=== PATIENT | female | born 1950 | race Caucasian/White ===

== ENCOUNTER 2018-04-06 10:42 | Outpatient (CLI) | payer MEDICARE, BC ==
--- NOTE | 2018-04-06 12:55 | BD ---
BONE DENSITOMETRY USING DEXA: HISTORY: Postmenopausal screening for osteoporosis. FINDINGS: Lumbar Spine: BMD (g/cm2) L1 1.018 T-Score: 0.3 Z-Score: 1.8 L2 1.045 T-Score: 0.2 Z-Score: 1.9 L3 1.151 T-Score: 0.6 Z-Score: 2.5 L4 1.222 T-Score: 1.5 Z-Score: 3.4 L1-L4 1.111 T-Score: 1.6 Z-Score: 2.4 Femoral Neck: 0.867 T-Score: 0.2 Z-Score: 1.7 Total Femur: 1.173 T-Score: 1.9 Z-Score: 3.1 There has been interval improvement of 09% in the BMD of the lumbar spine and an improvement of 11.8% in the BMD of the proximal femur since 06/08/2016. Impression: Normal bone mineral density. No evidence of osteopenia/osteoporosis. POS: [facility]
== END 2018-04-06 10:43 | disposition home or self-care (01) ==
LOC: BICMAMMO 10:42
PROVIDERS: ATTEND Internal Medicine Hematology & Oncology
DX: Z13.820 Encounter for screening for osteoporosis (principal); N95.9 Unspecified menopausal and perimenopausal disorder; Z85.3 Personal history of malignant neoplasm of breast
CPT/HCPCS: 77080

== ENCOUNTER 2020-08-01 14:46 | Outpatient (CLI) | payer MEDICARE, BC | END 2020-08-01 14:47 | disposition home or self-care (01) | LOC: BICMAMMO 14:46 | PROVIDERS: ATTEND Internal Medicine Hematology & Oncology | DX: Z13.820 Encounter for screening for osteoporosis (principal); N95.8 Other specified menopausal and perimenopausal disorders; Z85.3 Personal history of malignant neoplasm of breast | CPT/HCPCS: 77080 ==

== ENCOUNTER 2021-11-11 19:57 | Inpatient (IN) | payer OTHER, BC, MEDICAID ==
[~2021-11-11 19:57] MED LIST: Iopamidol-370 76% 500 ML 1 ML ONE
[2021-11-11 20:24] LABS: #Eosinphils 0.2 thou/uL (0.0-0.7); #Lymphocytes 2.1 thou/uL (1.20-3.40); #Monocytes 0.4 thou/uL (0.11-0.59); #Neutrophils 3.6 thou/uL (1.40-6.50); %Basophils 0.4 % (0.0-1.0); %Eosinophils 2.5 % (0.0-10.0); %Lymphocytes 33.6 % (21.0-51.0); %Monocytes 6.6 % (0.0-10.0); %Neutrophils 56.9 % (42.0-75.0); Hemoglobin 14.6 g/dL (12.0-16.0); Mean Corpuscular HGB CONC 33.1 g/dL (32.0-36.0); Mean Corpuscular Hemoglobin 30.1 pg (27.0-31.0); Mean Corpuscular Volume 91.1 fL (78.0-98.0); Mean Platelet Volume 7.2 fL (7.4-10.4); Platelet Count 215 thou/uL (130-400); RBC Distribution Width 11.7 % (11.5-14.5); Red Blood Cell (RBC) Count 4.85 mill/uL (4.20-5.40); White Blood Cell (WBC) Count 6.3 thou/uL (4.8-10.8)
[2021-11-11 20:46] LABS: ALT (SGPT) 16 U/L (8-55); AST (SGOT) 22 U/L (5-34); Albumin 4.2 g/dL (3.4-4.8); Alkaline Phosphatase 72 U/L (40-110); Anion Gap 14 mmol/L (10-20); BUN (Urea Nitrogen) 10 mg/dL (9.8-20.1); Bilirubin, Total 0.7 mg/dL (0.2-1.2); Calc. Creatinine Clearance 0 mL/min (70-130); Calcium 9.3 mg/dL (7.8-10.44); Carbon Dioxide 24 mmol/L (23-31); Chloride 100 mmol/L (98-107); Estimated GFR 62; Globulin 3.1 g/dL (2.4-3.5); Glucose 228 mg/dL (80-115); Lipase 48 U/L (8-78); Potassium 3.4 mmol/L (3.5-5.1); Protein, Total 7.3 g/dL (5.8-8.1); Sodium 135 mmol/L (136-145)
[2021-11-11] MEDS ORDERED: Morphine 4 MG/ML VIAL ONE (21:02)
[2021-11-11] MEDS ORDERED: Ondansetron PF 4 MG/2 ML Vial ONE (21:02)
[2021-11-11] MEDS ORDERED: Aspirin 325 MG TAB ONE (22:05)
[2021-11-11] MEDS ORDERED: Atorvastatin Calcium 40 MG TAB PO SCH (23:45)
[2021-11-11] MEDS ORDERED: Acetaminophen 325 MG TAB PO PRN (23:47)
[2021-11-11] MEDS ORDERED: Bisacodyl 5 MG TAB PO PRN (23:47)
[2021-11-11] MEDS ORDERED: Ondansetron ODT 4 MG TAB PO PRN (23:47)
[2021-11-11] MEDS ORDERED: Senokot S 8.6-50 MG TAB PO PRN (23:47)
[2021-11-11] MEDS ORDERED: Nitroglycerin 0.4 MG TAB (25 Tab Bottle) SL PRN (23:47)
[2021-11-11 23:54] LABS: SARS-CoV-2 NAA Rapid Test Not Detected (NotDetected)
[2021-11-12 00:12] LABS: Troponin I 0.034 ng/mL (< 0.028)
[2021-11-12 00:56] LABS: Troponin I 0.034 ng/mL (< 0.028)
[2021-11-12 01:42] VITALS: BMI 35.3
[2021-11-12 05:13] LABS: #Eosinphils 0.2 thou/uL (0.0-0.7); #Lymphocytes 3.3 thou/uL (1.20-3.40); #Monocytes 0.6 thou/uL (0.11-0.59); #Neutrophils 3.1 thou/uL (1.40-6.50); %Basophils 0.6 % (0.0-1.0); %Eosinophils 2.9 % (0.0-10.0); %Lymphocytes 45.5 % (21.0-51.0); %Monocytes 8.6 % (0.0-10.0); %Neutrophils 42.4 % (42.0-75.0); Hemoglobin 13.6 g/dL (12.0-16.0); Mean Corpuscular HGB CONC 32.4 g/dL (32.0-36.0); Mean Corpuscular Hemoglobin 29.9 pg (27.0-31.0); Mean Corpuscular Volume 92.4 fL (78.0-98.0); Mean Platelet Volume 7.4 fL (7.4-10.4); Platelet Count 215 thou/uL (130-400); RBC Distribution Width 11.8 % (11.5-14.5); Red Blood Cell (RBC) Count 4.56 mill/uL (4.20-5.40); White Blood Cell (WBC) Count 7.3 thou/uL (4.8-10.8)
[2021-11-12 05:26] LABS: Troponin I 0.021 ng/mL (< 0.028)
[2021-11-12 05:29] LABS: Anion Gap 11 mmol/L (10-20); BUN (Urea Nitrogen) 10 mg/dL (9.8-20.1); Calc. Creatinine Clearance 92 mL/min (70-130); Calcium 8.9 mg/dL (7.8-10.44); Carbon Dioxide 26 mmol/L (23-31); Cardiac Risk 3.9 (Less than 4.5); Chloride 103 mmol/L (98-107); Cholesterol 172 mg/dl (< 200 Desired); Estimated GFR 80; Glucose 100 mg/dL (80-115); HDL Cholesterol 44 mg/dL (>60 Neg Risk); LDL Cholesterol, Calculated 108 mg/dL; Potassium 3.6 mmol/L (3.5-5.1); Sodium 136 mmol/L (136-145); Triglycerides 100 mg/dL (Less than 150)
[2021-11-12] MEDS: Levothyroxine Sodium 50 MCG TAB PO SCH (06:21)
[2021-11-12] MEDS ORDERED: ADENOSINE 60 MG/20 ML VIAL ONE (08:44)
[2021-11-12] MEDS: Lisinopril 20 MG TAB PO SCH (15:34)
[2021-11-12] MEDS: Aspirin Chewable 81 MG TAB PO SCH (15:46)
[2021-11-12] MEDS: FLUoxetine HCl 20 MG CAP PO SCH (15:46)
[2021-11-12] MEDS: Enoxaparin Sodium 40 MG/0.4 ML SYRINGE SC SCH (15:46)
[2021-11-12] MEDS: Calcium Carbonate 600 MG + Vit D TAB PO SCH (15:47)
[2021-11-12] MEDS: Anastrozole 1 MG TAB PO SCH (15:47)
[2021-11-12] MEDS: Atorvastatin Calcium 40 MG TAB PO SCH (20:51)
[2021-11-13 05:04] LABS: #Basophils 0.1 thou/uL (0.0-0.2); #Eosinphils 0.2 thou/uL (0.0-0.7); #Monocytes 0.5 thou/uL (0.11-0.59); #Neutrophils 3.4 thou/uL (1.40-6.50); %Basophils 0.7 % (0.0-1.0); %Eosinophils 2.8 % (0.0-10.0); %Neutrophils 47.5 % (42.0-75.0); Hemoglobin 15.1 g/dL (12.0-16.0); Mean Corpuscular HGB CONC 35.4 g/dL (32.0-36.0); Mean Corpuscular Hemoglobin 32.8 pg (27.0-31.0); Mean Corpuscular Volume 92.8 fL (78.0-98.0); Mean Platelet Volume 7.3 fL (7.4-10.4); Platelet Count 201 thou/uL (130-400); RBC Distribution Width 11.6 % (11.5-14.5); Red Blood Cell (RBC) Count 4.59 mill/uL (4.20-5.40); White Blood Cell (WBC) Count 7.1 thou/uL (4.8-10.8)
[2021-11-13] MEDS: Levothyroxine Sodium 50 MCG TAB PO SCH (05:11)
[2021-11-13 05:28] LABS: Anion Gap 13 mmol/L (10-20); BUN (Urea Nitrogen) 12 mg/dL (9.8-20.1); Calc. Creatinine Clearance 93 mL/min (70-130); Calcium 9.4 mg/dL (7.8-10.44); Carbon Dioxide 26 mmol/L (23-31); Chloride 102 mmol/L (98-107); Estimated GFR 81; Glucose 109 mg/dL (80-115); Sodium 137 mmol/L (136-145)
[2021-11-13] MEDS: Aspirin Chewable 81 MG TAB PO SCH (09:02)
[2021-11-13] MEDS: Anastrozole 1 MG TAB PO SCH (09:02)
[2021-11-13] MEDS: FLUoxetine HCl 20 MG CAP PO SCH (09:02)
[2021-11-13] MEDS: Enoxaparin Sodium 40 MG/0.4 ML SYRINGE SC SCH (09:02)
[2021-11-13] MEDS: Calcium Carbonate 600 MG + Vit D TAB PO SCH (09:02)
[2021-11-13] MEDS: Lisinopril 20 MG TAB PO SCH (09:02)
[2021-11-13] MEDS ORDERED: Iopamidol 370 76% 100 ML VIAL ONE (10:22)
[2021-11-13] MEDS ORDERED: Communication Order-Pharmacy FS SCH (15:15)
[2021-11-13] MEDS ORDERED: Nitroglycerin 100MG/250ML BOT 0 ML ONE (16:28)
[2021-11-13] MEDS ORDERED: Heparin 10,000 UNITS/ 10 ML VIAL ONE (16:28)
[2021-11-13] MEDS ORDERED: Lidocaine 1% (PF) 30 ML VIAL ONE (16:28)
[2021-11-13] MEDS ORDERED: Verapamil 5 MG/2 ML VIAL ONE (16:28)
[2021-11-13] MEDS ORDERED: Midazolam HCl 2 mg/2 ml Vial ONE (16:50)
[2021-11-13] MEDS ORDERED: Fentanyl 100 MCG/2 ML VIAL ONE (16:50)
[2021-11-13] MEDS ORDERED: hydrALAZINE 20 MG/ML VIAL ONE (17:09)
[2021-11-13] MEDS ORDERED: Nitroglycerin 0.4 MG TAB (25 Tab Bottle) SL PRN (17:25)
[2021-11-13] MEDS ORDERED: Acetaminophen/Codeine 30-300mg Tablet PO PRN ×2 (17:25)
[2021-11-13] MEDS ORDERED: Sodium Chloride 0.9% 200 ML IV PRN (17:25)
[2021-11-13] MEDS ORDERED: Sodium Chloride 0.9% 1,000 ML IV SCH (17:30)
[2021-11-13] MEDS: Sodium Chloride 0.9% 1,000 ML IV SCH (18:04)
[2021-11-13] MEDS: Atorvastatin Calcium 40 MG TAB PO SCH (22:54)
[2021-11-14 05:11] LABS: #Basophils 0.2 thou/uL (0.0-0.2); #Eosinphils 0.1 thou/uL (0.0-0.7); #Lymphocytes 1.9 thou/uL (1.20-3.40); #Monocytes 0.6 thou/uL (0.11-0.59); #Neutrophils 4.6 thou/uL (1.40-6.50); %Basophils 2.3 % (0.0-1.0); %Eosinophils 1.6 % (0.0-10.0); %Lymphocytes 25.3 % (21.0-51.0); %Monocytes 8.3 % (0.0-10.0); %Neutrophils 62.5 % (42.0-75.0); Hemoglobin 13.9 g/dL (12.0-16.0); Mean Corpuscular HGB CONC 33.6 g/dL (32.0-36.0); Mean Corpuscular Hemoglobin 30.8 pg (27.0-31.0); Mean Corpuscular Volume 91.7 fL (78.0-98.0); Mean Platelet Volume 7.4 fL (7.4-10.4); Platelet Count 200 thou/uL (130-400); RBC Distribution Width 11.5 % (11.5-14.5); Red Blood Cell (RBC) Count 4.51 mill/uL (4.20-5.40); White Blood Cell (WBC) Count 7.4 thou/uL (4.8-10.8)
[2021-11-14 05:37] LABS: Anion Gap 12 mmol/L (10-20); BUN (Urea Nitrogen) 8 mg/dL (9.8-20.1); Calc. Creatinine Clearance 103 mL/min (70-130); Calcium 9.1 mg/dL (7.8-10.44); Carbon Dioxide 25 mmol/L (23-31); Chloride 102 mmol/L (98-107); Estimated GFR 92; Glucose 98 mg/dL (80-115); Potassium 3.4 mmol/L (3.5-5.1); Sodium 136 mmol/L (136-145)
[2021-11-14] MEDS: Levothyroxine Sodium 50 MCG TAB PO SCH (05:48)
[2021-11-14] MEDS: Sodium Chloride 0.9% 1,000 ML IV SCH ×3 (05:48→19:58)
[2021-11-14] MEDS ORDERED: Potassium Chloride 20 MEQ TAB PO SCH (08:45)
[2021-11-14] MEDS ORDERED: Communication Order-Pharmacy FS SCH (09:22)
[2021-11-14] MEDS ORDERED: Diazepam 5 MG TAB PO PRN (09:22)
[2021-11-14] MEDS: Lisinopril 20 MG TAB PO SCH (09:53)
[2021-11-14] MEDS: Enoxaparin Sodium 40 MG/0.4 ML SYRINGE SC SCH (09:53)
[2021-11-14] MEDS: Calcium Carbonate 600 MG + Vit D TAB PO SCH (09:53)
[2021-11-14] MEDS: FLUoxetine HCl 20 MG CAP PO SCH (09:53)
[2021-11-14] MEDS: Anastrozole 1 MG TAB PO SCH (09:53)
[2021-11-14] MEDS: Aspirin Chewable 81 MG TAB PO SCH (09:53)
[2021-11-14] MEDS: Atorvastatin Calcium 40 MG TAB PO SCH (19:58)
[2021-11-15] MEDS: Levothyroxine Sodium 50 MCG TAB PO SCH (05:36)
[2021-11-15] MEDS: Sodium Chloride 0.9% 1,000 ML IV SCH ×2 (05:37→15:54)
[2021-11-15 05:38] LABS: #Eosinphils 0.2 thou/uL (0.0-0.7); #Lymphocytes 1.7 thou/uL (1.20-3.40); #Monocytes 0.7 thou/uL (0.11-0.59); #Neutrophils 5.6 thou/uL (1.40-6.50); %Basophils 0.2 % (0.0-1.0); %Eosinophils 2.2 % (0.0-10.0); %Lymphocytes 20.7 % (21.0-51.0); %Monocytes 8.4 % (0.0-10.0); %Neutrophils 68.4 % (42.0-75.0); Hemoglobin 14.1 g/dL (12.0-16.0); Mean Corpuscular HGB CONC 33.1 g/dL (32.0-36.0); Mean Corpuscular Hemoglobin 30.6 pg (27.0-31.0); Mean Corpuscular Volume 92.6 fL (78.0-98.0); Mean Platelet Volume 7.3 fL (7.4-10.4); Platelet Count 188 thou/uL (130-400); RBC Distribution Width 11.6 % (11.5-14.5); Red Blood Cell (RBC) Count 4.61 mill/uL (4.20-5.40); White Blood Cell (WBC) Count 8.3 thou/uL (4.8-10.8)
[2021-11-15 06:01] LABS: Anion Gap 11 mmol/L (10-20); BUN (Urea Nitrogen) 12 mg/dL (9.8-20.1); Calc. Creatinine Clearance 99 mL/min (70-130); Carbon Dioxide 23 mmol/L (23-31); Chloride 107 mmol/L (98-107); Estimated GFR 88; Glucose 112 mg/dL (80-115); Potassium 3.7 mmol/L (3.5-5.1); Sodium 137 mmol/L (136-145)
[2021-11-15] MEDS: FLUoxetine HCl 20 MG CAP PO SCH (09:36)
[2021-11-15] MEDS: Calcium Carbonate 600 MG + Vit D TAB PO SCH (09:38)
[2021-11-15] MEDS: Anastrozole 1 MG TAB PO SCH (09:38)
[2021-11-15] MEDS: Aspirin Chewable 81 MG TAB PO SCH (09:38)
[2021-11-15] MEDS: Lisinopril 20 MG TAB PO SCH (09:39)
[2021-11-15] MEDS: Enoxaparin Sodium 40 MG/0.4 ML SYRINGE SC SCH (09:39)
[2021-11-15] MEDS: Atorvastatin Calcium 40 MG TAB PO SCH (22:47)
[2021-11-16] MEDS: Sodium Chloride 0.9% 1,000 ML IV SCH (02:36)
[2021-11-16 05:27] LABS: #Eosinphils 0.2 thou/uL (0.0-0.7); #Lymphocytes 2.1 thou/uL (1.20-3.40); #Monocytes 0.7 thou/uL (0.11-0.59); #Neutrophils 4.8 thou/uL (1.40-6.50); %Basophils 0.6 % (0.0-1.0); %Monocytes 9.2 % (0.0-10.0); %Neutrophils 61.1 % (42.0-75.0); Hemoglobin 14.4 g/dL (12.0-16.0); Mean Corpuscular HGB CONC 34.3 g/dL (32.0-36.0); Mean Corpuscular Hemoglobin 31.8 pg (27.0-31.0); Mean Corpuscular Volume 92.8 fL (78.0-98.0); Mean Platelet Volume 7.3 fL (7.4-10.4); Platelet Count 180 thou/uL (130-400); RBC Distribution Width 11.7 % (11.5-14.5); Red Blood Cell (RBC) Count 4.51 mill/uL (4.20-5.40); White Blood Cell (WBC) Count 7.9 thou/uL (4.8-10.8)
[2021-11-16 05:47] LABS: Anion Gap 11 mmol/L (10-20); BUN (Urea Nitrogen) 12 mg/dL (9.8-20.1); Calc. Creatinine Clearance 103 mL/min (70-130); Calcium 9.3 mg/dL (7.8-10.44); Carbon Dioxide 25 mmol/L (23-31); Chloride 106 mmol/L (98-107); Estimated GFR 92; Glucose 101 mg/dL (80-115); Potassium 3.5 mmol/L (3.5-5.1); Sodium 138 mmol/L (136-145)
[2021-11-16] MEDS: Levothyroxine Sodium 50 MCG TAB PO SCH (06:01)
[2021-11-16] MEDS ORDERED: Midazolam HCl 5 mg/5 ml Vial ONE (06:15)
[2021-11-16] MEDS ORDERED: fentaNYL Citrate/PF 100 MCG/2 ML SYRINGE ONE (06:15)
[2021-11-16] MEDS ORDERED: Rocuronium Bromide 50 MG/5 ML VIAL ONE (06:16)
[2021-11-16] MEDS ORDERED: niCARdipine 25 MG/10 ML VIAL ONE (06:16)
[2021-11-16] MEDS ORDERED: Insulin Regular 300 UNITS/3 ML VIAL ONE (06:16)
[2021-11-16] MEDS ORDERED: Norepinephrine 4 MG/4 ML VIAL ONE (06:16)
[2021-11-16] MEDS ORDERED: Dexmedetomidine 200 MCG/2 ML VIAL ONE (06:16)
[2021-11-16] MEDS ORDERED: Albumin 5% 500 ML ONE (06:35)
[2021-11-16] MEDS ORDERED: Lidocaine 1% MPF 2 ML VIAL ONE ×2 (06:39→07:35)
[2021-11-16] MEDS ORDERED: Heparin 10,000 UNITS/1 ML VIAL 30,000 UNITS in Sodium Chloride 0.9% 1,000 ML FS SCH (06:45)
[2021-11-16] MEDS ORDERED: Bupivacaine HCl 0.5%/Epinephrine 1:200,000/PF 30 ml Vial ONE (07:14)
[2021-11-16] MEDS ORDERED: Dexamethasone 4 mg/ml Vial ONE (07:14)
[2021-11-16] MEDS ORDERED: Sodium Chloride 0.9% 0 ML ONE (07:28)
[2021-11-16] MEDS ORDERED: CEFAZOLIN 2 GM VIAL ONE (07:28)
[2021-11-16] MEDS ORDERED: CEFAZOLIN 2 GM in Sodium Chloride 0.9% 100 ML IVPB SCH (07:30)
[2021-11-16] MEDS ORDERED: Rocuronium Bromide 10 MG/ML (10ML VIAL) ONE (07:35)
[2021-11-16] MEDS ORDERED: Heparin 30,000 units/30 ml VIAL ONE (07:35)
[2021-11-16] MEDS ORDERED: Aminocaproic Acid 5 GM/20 ML VIAL ONE (07:35)
[2021-11-16] MEDS ORDERED: Magnesium Sulfate 1 GM/2 ML VIAL ONE (07:35)
[2021-11-16] MEDS ORDERED: Thrombin 5000 UNITS/5 ML VIAL ONE (07:35)
[2021-11-16] MEDS ORDERED: Protamine Sulfate 250 MG/25 ML VIAL ONE (07:35)
[2021-11-16] MEDS ORDERED: Heparin 5,000 UNITS/ML VIAL ONE (07:35)
[2021-11-16] MEDS ORDERED: Papaverine 60 MG/2 ML VIAL ONE (07:35)
[2021-11-16] MEDS ORDERED: Sodium Bicarb 50 MEQ/50 ML Abboject 8.4% SYRINGE ONE (07:35)
[2021-11-16] MEDS ORDERED: Cardioplegic Soln 1,000 ML BAG ONE (07:35)
[2021-11-16] MEDS ORDERED: Calcium Chloride 1 GM/10 ML Abboject SYRINGE ONE (07:35)
[2021-11-16] MEDS ORDERED: PROPOFOL 200 MG/20 ML VIAL ONE (07:35)
[2021-11-16] MEDS ORDERED: Potassium Chloride 60 MEQ/30 ML VIAL ONE (07:35)
[2021-11-16] MEDS ORDERED: Lidocaine 2% PF 100 mg/5 ml Syringe ONE (07:35)
[2021-11-16] MEDS ORDERED: PHENYLEPHRINE-NS 100 MCG/ML 10 ML SYRINGE ONE (09:38)
[2021-11-16] MEDS: Calcium Carbonate 600 MG + Vit D TAB PO SCH (10:13)
[2021-11-16] MEDS: Lisinopril 20 MG TAB PO SCH (10:13)
[2021-11-16] MEDS ORDERED: Promethazine HCl 25 MG/ML VIAL IM PRN (11:22)
[2021-11-16] MEDS ORDERED: Bisacodyl 5 MG TAB PO PRN (11:22)
[2021-11-16] MEDS ORDERED: Guaifenesin DM 100-10/5 ML UDCUP PO PRN (11:22)
[2021-11-16] MEDS ORDERED: Fentanyl 100 MCG/2 ML VIAL SLOW IVP PRN ×2 (11:22)
[2021-11-16] MEDS ORDERED: Morphine 4 MG/ML VIAL SLOW IVP PRN (11:22)
[2021-11-16] MEDS ORDERED: Hetastarch 6% 500 ML 500 ML IVPB PRN (11:22)
[2021-11-16] MEDS ORDERED: Post-Op Insulin Drip Protocol IVPB ONE (11:22)
[2021-11-16] MEDS ORDERED: HYDROcodone/Acetaminophen 5/325 mg Tablet PO PRN ×2 (11:22)
[2021-11-16] MEDS ORDERED: Mag-Al 1200 mg/1200 mg/30 ML UDCUP PO PRN (11:22)
[2021-11-16] MEDS ORDERED: Bisacodyl 10 MG SUPP PR PRN (11:22)
[2021-11-16] MEDS ORDERED: Ondansetron PF 4 MG/2 ML Vial IVP PRN (11:22)
[2021-11-16] MEDS ORDERED: Magnesium 2 GM/50 ML(in water) 2 GM in Premix Bag 1 BAG IVPB SCH (11:22)
[2021-11-16] MEDS ORDERED: Potassium Chloride 20 MEQ/100 ML PREMIX BAG IVPB PRN (11:22)
[2021-11-16] MEDS ORDERED: HUMULIN R 100 UNITS in Sodium Chloride 0.9% 100 ML IVPB SCH (11:30)
[2021-11-16] MEDS ORDERED: Dextrose 50% Abboject 50 ML SYRINGE SLOW IVP PRN (11:30)
[2021-11-16] MEDS ORDERED: Insulin Regular 300 UNITS/3 ML VIAL SC PRN (11:30)
[2021-11-16] MEDS ORDERED: Dextrose 5% in Water 1,000 ML IV PRN (11:30)
[2021-11-16 11:38] LABS: #Eosinphils 0.1 thou/uL (0.0-0.7); #Lymphocytes 2.3 thou/uL (1.20-3.40); #Monocytes 0.7 thou/uL (0.11-0.59); %Basophils 0.2 % (0.0-1.0); %Eosinophils 0.7 % (0.0-10.0); %Lymphocytes 14.2 % (21.0-51.0); %Monocytes 4.6 % (0.0-10.0); %Neutrophils 80.3 % (42.0-75.0); Hemoglobin 12.5 g/dL (12.0-16.0); Mean Corpuscular Hemoglobin 31.2 pg (27.0-31.0); Mean Corpuscular Volume 94.4 fL (78.0-98.0); Mean Platelet Volume 7.8 fL (7.4-10.4); Platelet Count 174 thou/uL (130-400); RBC Distribution Width 11.9 % (11.5-14.5); Red Blood Cell (RBC) Count 4.01 mill/uL (4.20-5.40); White Blood Cell (WBC) Count 16.2 thou/uL (4.8-10.8)
[2021-11-16 11:38] LABS: ALV-art Gradient 275.125 mmHg (0-20); Actual Bicarbonate (HCO3a) 20.7 mEq/L (22-28); Base Excess (BEa) -3.7 mEq/L (-2.0 to +3.0); CO2 Tension 35.5 mmHg (35.0-45.0); Calcium, Ionized (arterial) 1.14 mmol/L (1.12-1.30); Carboxyhemoglobin (COHb) 0.4 gm% (0.0-3.0); Hemoglobin (Hb) 12.8 g/dL (12.0-16.0); O2 Tension (PaO2), arterial 108.3 mmHg (> 80.0); Potassium - ABG Lab 3.33 mmol/L (3.70-5.30); Puncture Site Arterial Line; pH, Arterial 7.38 (7.35-7.45)
[2021-11-16 11:52] LABS: INR-International Normal Ratio 1.3; PTT 33.3 sec (22.9-36.1); Prothrombin Time 16.3 sec (12.0-14.7)
[2021-11-16 11:57] LABS: Anion Gap 11 mmol/L (10-20); BUN (Urea Nitrogen) 10 mg/dL (9.8-20.1); Calc. Creatinine Clearance 110 mL/min (70-130); Carbon Dioxide 20 mmol/L (23-31); Chloride 112 mmol/L (98-107); Potassium 3.5 mmol/L (3.5-5.1); Sodium 139 mmol/L (136-145)
[2021-11-16 11:58] LABS: Calcium 8.3 mg/dL (7.8-10.44); Estimated GFR 95; Glucose 197 mg/dL (80-115)
[2021-11-16] MEDS: Lactated Ringer's 1,000 ML IV SCH ×2 (12:12→23:44)
[2021-11-16] MEDS: Ketorolac Tromethamine 30 MG/ML VIAL IVP SCH ×3 (12:12→23:43)
[2021-11-16] MEDS: CEFAZOLIN 2 GM in Sodium Chloride 0.9% 100 ML IVPB SCH ×2 (12:13→20:34)
[2021-11-16 15:42] LABS: Actual Bicarbonate (HCO3a) 21.5 mEq/L (22-28); Base Excess (BEa) -3.4 mEq/L (-2.0 to +3.0); CO2 Tension 38.2 mmHg (35.0-45.0); Calcium, Ionized (arterial) 1.13 mmol/L (1.12-1.30); Carboxyhemoglobin (COHb) 0.4 gm% (0.0-3.0); Hemoglobin (Hb) 11.9 g/dL (12.0-16.0); O2 Tension (PaO2), arterial 79.3 mmHg (> 80.0); Potassium - ABG Lab 4.01 mmol/L (3.70-5.30); pH, Arterial 7.37 (7.35-7.45)
[2021-11-16 15:51] LABS: Puncture Site Arterial Line
[2021-11-16 17:13] LABS: Hemoglobin 11.2 g/dL (12.0-16.0)
[2021-11-16 17:34] LABS: Potassium 4.1 mmol/L (3.5-5.1)
[2021-11-16] MEDS ORDERED: Famotidine/PF 20 mg/2ml Vial SLOW IVP SCH (21:00)
[2021-11-16] MEDS ORDERED: Atorvastatin Calcium 20 MG TAB PO SCH (21:00)
[2021-11-17 04:41] LABS: #Lymphocytes 1.1 thou/uL (1.20-3.40); #Monocytes 1.1 thou/uL (0.11-0.59); #Neutrophils 8.6 thou/uL (1.40-6.50); %Basophils 0.1 % (0.0-1.0); %Lymphocytes 10.1 % (21.0-51.0); %Monocytes 9.9 % (0.0-10.0); %Neutrophils 79.9 % (42.0-75.0); Hemoglobin 10.5 g/dL (12.0-16.0); Mean Corpuscular HGB CONC 33.5 g/dL (32.0-36.0); Mean Corpuscular Hemoglobin 31.6 pg (27.0-31.0); Mean Corpuscular Volume 94.4 fL (78.0-98.0); Mean Platelet Volume 7.9 fL (7.4-10.4); Platelet Count 167 thou/uL (130-400); RBC Distribution Width 11.7 % (11.5-14.5); Red Blood Cell (RBC) Count 3.34 mill/uL (4.20-5.40); White Blood Cell (WBC) Count 10.7 thou/uL (4.8-10.8)
[2021-11-17 05:04] LABS: Anion Gap 9 mmol/L (10-20); BUN (Urea Nitrogen) 12 mg/dL (9.8-20.1); Calc. Creatinine Clearance 97 mL/min (70-130); Calcium 8.4 mg/dL (7.8-10.44); Carbon Dioxide 24 mmol/L (23-31); Chloride 108 mmol/L (98-107); Estimated GFR 86; Glucose 116 mg/dL (80-115); Potassium 4.1 mmol/L (3.5-5.1); Sodium 137 mmol/L (136-145)
[2021-11-17] MEDS: Ketorolac Tromethamine 30 MG/ML VIAL IVP SCH ×4 (05:48→23:47)
[2021-11-17] MEDS: CEFAZOLIN 2 GM in Sodium Chloride 0.9% 100 ML IVPB SCH (05:49)
[2021-11-17] MEDS ORDERED: Zolpidem Tartrate 5 MG TAB PO PRN (08:10)
[2021-11-17] MEDS ORDERED: Bisacodyl 5 MG TAB PO PRN (08:10)
[2021-11-17] MEDS ORDERED: Nitroglycerin 0.4 MG TAB (25 Tab Bottle) SL PRN (08:10)
[2021-11-17] MEDS ORDERED: Mag-Al 1200 mg/1200 mg/30 ML UDCUP PO PRN (08:10)
[2021-11-17] MEDS ORDERED: traMADol HCl 50 MG TAB PO PRN ×2 (08:10)
[2021-11-17] MEDS ORDERED: Mineral Oil ENEMA PR PRN (08:10)
[2021-11-17] MEDS ORDERED: diphenhydrAMINE 25 MG CAP PO PRN (08:10)
[2021-11-17] MEDS ORDERED: Milk Of Magnesia 30 ML UDCUP PO PRN (08:10)
[2021-11-17] MEDS ORDERED: Bisacodyl 10 MG SUPP PR PRN (08:10)
[2021-11-17] MEDS ORDERED: Guaifenesin DM 100-10/5 ML UDCUP PO PRN (08:10)
[2021-11-17] MEDS ORDERED: Potassium Chloride 10 MEQ TAB PO SCH (08:30)
[2021-11-17] MEDS ORDERED: Aspirin 325 MG TAB PO SCH (09:00)
[2021-11-17] MEDS ORDERED: Furosemide 40 MG TAB PO SCH (09:00)
[2021-11-17] MEDS ORDERED: Metoprolol Tartrate 25 MG TAB PO SCH ×3 (09:26→21:00)
[2021-11-17] MEDS: FLUoxetine HCl 20 MG CAP PO SCH (10:16)
[2021-11-17] MEDS: Anastrozole 1 MG TAB PO SCH (10:17)
[2021-11-17] MEDS: Aspirin 81 mg Enteric Coated Tablet PO SCH (10:17)
[2021-11-17] MEDS: Clopidogrel Bisulfate 75 MG TAB PO SCH (10:17)
[2021-11-17] MEDS: Magnesium 2 GM/50 ML(in water) 2 GM in Premix Bag 1 BAG IVPB SCH (10:18)
[2021-11-17] MEDS ORDERED: Insulin Glargine 30 UNITS/0.3 ML VIAL SC PRN (11:25)
[2021-11-17 14:01] LABS: Actual Bicarbonate (HCO3a) 24.3 mEq/L (22-28); Analyzer IN Cardio OR; Base Excess (BEa) 1.3 mEq/L (-2.0 to +3.0); CO2 Tension 33.9 mmHg (35.0-45.0); Calcium, Ionized (arterial) 1.09 mmol/L (1.12-1.30); Carboxyhemoglobin (COHb) 0.6 gm% (0.0-3.0); Hemoglobin (Hb) 13.7 g/dL (12.0-16.0); O2 Tension (PaO2), arterial 233.6 mmHg (> 80.0); Potassium - ABG Lab 3.49 mmol/L (3.70-5.30); pH, Arterial 7.47 (7.35-7.45)
[2021-11-17 14:02] LABS: Analyzer IN Cardio OR; Base Excess (BEa) -0.9 mEq/L (-2.0 to +3.0); CO2 Tension 40.4 mmHg (35.0-45.0); Calcium, Ionized (arterial) 1.24 mmol/L (1.12-1.30); Carboxyhemoglobin (COHb) 0.1 gm% (0.0-3.0); Hemoglobin (Hb) 9.6 g/dL (12.0-16.0); O2 Tension (PaO2), arterial 369.1 mmHg (> 80.0); Potassium - ABG Lab 4.02 mmol/L (3.70-5.30); pH, Arterial 7.39 (7.35-7.45)
[2021-11-17 14:02] LABS: Actual Bicarbonate (HCO3a) 20.9 mEq/L (22-28); Analyzer IN Cardio OR; Base Excess (BEa) -2.5 mEq/L (-2.0 to +3.0); CO2 Tension 31.1 mmHg (35.0-45.0); Carboxyhemoglobin (COHb) 0.2 gm% (0.0-3.0); O2 Tension (PaO2), arterial 243.3 mmHg (> 80.0); Potassium - ABG Lab 3.64 mmol/L (3.70-5.30); pH, Arterial 7.45 (7.35-7.45)
[2021-11-17 14:02] LABS: Actual Bicarbonate (HCO3a) 24.9 mEq/L (22-28); Analyzer IN Cardio OR; Base Excess (BEa) -0.3 mEq/L (-2.0 to +3.0); CO2 Tension 42.7 mmHg (35.0-45.0); Calcium, Ionized (arterial) 0.94 mmol/L (1.12-1.30); Carboxyhemoglobin (COHb) 0.5 gm% (0.0-3.0); Hemoglobin (Hb) 9.3 g/dL (12.0-16.0); O2 Tension (PaO2), arterial 431.5 mmHg (> 80.0); Potassium - ABG Lab 3.91 mmol/L (3.70-5.30); pH, Arterial 7.38 (7.35-7.45)
[2021-11-17 14:02] LABS: Actual Bicarbonate (HCO3a) 20.8 mEq/L (22-28); Analyzer IN Cardio OR; Base Excess (BEa) -2.3 mEq/L (-2.0 to +3.0); CO2 Tension 30.9 mmHg (35.0-45.0); Calcium, Ionized (arterial) 1.05 mmol/L (1.12-1.30); Carboxyhemoglobin (COHb) 0.5 gm% (0.0-3.0); Hemoglobin (Hb) 12.7 g/dL (12.0-16.0); O2 Tension (PaO2), arterial 338.1 mmHg (> 80.0); Potassium - ABG Lab 3.11 mmol/L (3.70-5.30); pH, Arterial 7.45 (7.35-7.45)
[2021-11-17 14:03] LABS: Puncture Site Arterial Line
[2021-11-17 14:03] LABS: Actual Bicarbonate (HCO3a) 20.6 mEq/L (22-28); Analyzer IN Cardio OR; Base Excess (BEa) -3.5 mEq/L (-2.0 to +3.0); CO2 Tension 33.7 mmHg (35.0-45.0); Calcium, Ionized (arterial) 1.16 mmol/L (1.12-1.30); Carboxyhemoglobin (COHb) 0.4 gm% (0.0-3.0); Hemoglobin (Hb) 11.4 g/dL (12.0-16.0); Potassium - ABG Lab 3.29 mmol/L (3.70-5.30)
[2021-11-17 14:04] LABS: Puncture Site Arterial Line
[2021-11-17 14:04] LABS: Puncture Site Arterial Line
[2021-11-17 14:04] LABS: Puncture Site Arterial Line
[2021-11-17 14:05] LABS: Puncture Site Arterial Line
[2021-11-17 14:05] LABS: Puncture Site Arterial Line
[2021-11-17] MEDS: Atorvastatin Calcium 40 MG TAB PO SCH (19:40)
[2021-11-18] MEDS: Levothyroxine Sodium 50 MCG TAB PO SCH (05:54)
[2021-11-18] MEDS: Ketorolac Tromethamine 30 MG/ML VIAL IVP SCH ×3 (05:54→17:59)
[2021-11-18] MEDS ORDERED: Potassium Chloride 10 MEQ TAB PO SCH (08:00)
[2021-11-18] MEDS: Clopidogrel Bisulfate 75 MG TAB PO SCH (09:31)
[2021-11-18] MEDS: Anastrozole 1 MG TAB PO SCH (09:31)
[2021-11-18] MEDS: Magnesium 2 GM/50 ML(in water) 2 GM in Premix Bag 1 BAG IVPB SCH (09:31)
[2021-11-18] MEDS: Aspirin 81 mg Enteric Coated Tablet PO SCH (09:31)
[2021-11-18] MEDS: FLUoxetine HCl 20 MG CAP PO SCH (09:31)
[2021-11-18] MEDS: Atorvastatin Calcium 40 MG TAB PO SCH (20:11)
[2021-11-18] MEDS: Acetaminophen 325 MG TAB PO PRN (20:12)
[2021-11-19] MEDS: Ketorolac Tromethamine 30 MG/ML VIAL IVP SCH ×3 (00:33→11:32)
[2021-11-19] MEDS: Levothyroxine Sodium 50 MCG TAB PO SCH (05:41)
[2021-11-19] MEDS: Anastrozole 1 MG TAB PO SCH (08:22)
[2021-11-19] MEDS: Aspirin 81 mg Enteric Coated Tablet PO SCH (08:22)
[2021-11-19] MEDS: FLUoxetine HCl 20 MG CAP PO SCH (08:22)
[2021-11-19] MEDS: Clopidogrel Bisulfate 75 MG TAB PO SCH (08:22)
[2021-11-19 08:43] LABS: #Eosinphils 0.2 thou/uL (0.0-0.7); #Lymphocytes 2.4 thou/uL (1.20-3.40); #Monocytes 1.1 thou/uL (0.11-0.59); #Neutrophils 6.2 thou/uL (1.40-6.50); %Basophils 0.1 % (0.0-1.0); %Eosinophils 1.9 % (0.0-10.0); %Lymphocytes 24.1 % (21.0-51.0); %Monocytes 11.2 % (0.0-10.0); %Neutrophils 62.8 % (42.0-75.0); Hemoglobin 9.3 g/dL (12.0-16.0); Mean Corpuscular HGB CONC 32.8 g/dL (32.0-36.0); Mean Corpuscular Hemoglobin 31.3 pg (27.0-31.0); Mean Corpuscular Volume 95.6 fL (78.0-98.0); Mean Platelet Volume 8.1 fL (7.4-10.4); Platelet Count 180 thou/uL (130-400); RBC Distribution Width 11.8 % (11.5-14.5); Red Blood Cell (RBC) Count 2.96 mill/uL (4.20-5.40); White Blood Cell (WBC) Count 9.8 thou/uL (4.8-10.8)
[2021-11-19 09:01] LABS: Anion Gap 10 mmol/L (10-20); BUN (Urea Nitrogen) 14 mg/dL (9.8-20.1); Calc. Creatinine Clearance 110 mL/min (70-130); Calcium 8.3 mg/dL (7.8-10.44); Carbon Dioxide 24 mmol/L (23-31); Chloride 102 mmol/L (98-107); Estimated GFR 94; Glucose 107 mg/dL (80-115); Potassium 3.4 mmol/L (3.5-5.1); Sodium 133 mmol/L (136-145)
[2021-11-19] MEDS ORDERED: Potassium Chloride 20 MEQ TAB PO SCH (09:15)
[2021-11-19] MEDS: Atorvastatin Calcium 40 MG TAB PO SCH (21:44)
[2021-11-19] MEDS: Acetaminophen 325 MG TAB PO PRN (21:51)
[2021-11-20 04:37] LABS: #Eosinphils 0.2 thou/uL (0.0-0.7); #Lymphocytes 1.8 thou/uL (1.20-3.40); #Monocytes 1.2 thou/uL (0.11-0.59); #Neutrophils 5.4 thou/uL (1.40-6.50); %Basophils 0.2 % (0.0-1.0); %Eosinophils 2.5 % (0.0-10.0); %Neutrophils 62.3 % (42.0-75.0); Hemoglobin 8.5 g/dL (12.0-16.0); Mean Corpuscular HGB CONC 34.3 g/dL (32.0-36.0); Mean Corpuscular Hemoglobin 32.3 pg (27.0-31.0); Mean Corpuscular Volume 93.9 fL (78.0-98.0); Platelet Count 194 thou/uL (130-400); RBC Distribution Width 11.5 % (11.5-14.5); Red Blood Cell (RBC) Count 2.64 mill/uL (4.20-5.40); White Blood Cell (WBC) Count 8.8 thou/uL (4.8-10.8)
[2021-11-20 04:56] LABS: Anion Gap 13 mmol/L (10-20); BUN (Urea Nitrogen) 12 mg/dL (9.8-20.1); Calc. Creatinine Clearance 102 mL/min (70-130); Calcium 8.7 mg/dL (7.8-10.44); Carbon Dioxide 23 mmol/L (23-31); Chloride 102 mmol/L (98-107); Estimated GFR 89; Glucose 113 mg/dL (80-115); Potassium 3.6 mmol/L (3.5-5.1); Sodium 134 mmol/L (136-145)
[2021-11-20] MEDS: Levothyroxine Sodium 50 MCG TAB PO SCH (06:05)
[2021-11-20] MEDS: FLUoxetine HCl 20 MG CAP PO SCH (08:07)
[2021-11-20] MEDS: Aspirin 81 mg Enteric Coated Tablet PO SCH (08:07)
[2021-11-20] MEDS: Clopidogrel Bisulfate 75 MG TAB PO SCH (08:07)
[2021-11-20] MEDS: Anastrozole 1 MG TAB PO SCH (08:07)
[2021-11-20] MEDS ORDERED: Sulfameth/Trimethoprim DS 800-160mg TAB PO SCH ×3 (10:15→21:00)
[2021-11-20 10:46] LABS: Bacteria/HPF None Seen HPF (None Seen); Bilirubin Negative (Negative); Blood, Urine Negative (Negative); Clarity Clear (Clear); Glucose, Urine (Dipstick) Normal (Negative); Ketone, Urine 20 mg/dL (Negative); Leukocyte Negative Leu/uL (Negative); Nitrite Negative (Negative); Protein, Urine (Dipstick) Negative (Neg-Trace); RBC/HPF 0-3 HPF (0-3); Specific Gravity, Urine 1.008 (1.002-1.036); Squamous Epithelial 0-3 HPF (0-3); Urobilinogen Normal mg/dL (Less than 2); WBC/HPF 0-3 HPF (0-3); pH, Urine 5.5 (5.0-9.0)
[2021-11-20 10:48] LABS: Urine Culture Reflex No No
[2021-11-20 13:52] VITALS: BP 133/73; TEMP 98.7
== END 2021-11-20 15:50 | disposition home or self-care (01) | DRG 234 ==
LOC: ERS 19:57 → NEURO 22:59 → OBSVTOIN 11-13 18:04 → CCU 11-16 08:32 → 2NO 11-17 08:28
PROVIDERS: ADMIT Internal Medicine; ATTEND Internal Medicine
PROC: 4A023N7 Measurement of Cardiac Sampling and Pressure, Left Heart, Percutaneous Approach (ICD-10-PCS; 2021-11-13)
PROC: B2151ZZ Fluoroscopy of Left Heart using Low Osmolar Contrast (ICD-10-PCS; 2021-11-13)
PROC: B2111ZZ Fluoroscopy of Multiple Coronary Arteries using Low Osmolar Contrast (ICD-10-PCS; 2021-11-13)
PROC: 02100Z9 Bypass Coronary Artery, One Artery from Left Internal Mammary, Open Approach (ICD-10-PCS; principal; 2021-11-16)
PROC: 021209W Bypass Coronary Artery, Three Arteries from Aorta with Autologous Venous Tissue, Open Approach (ICD-10-PCS; 2021-11-16)
PROC: 06BQ0ZZ Excision of Left Saphenous Vein, Open Approach (ICD-10-PCS; 2021-11-16)
PROC: 5A1221Z Performance of Cardiac Output, Continuous (ICD-10-PCS; 2021-11-16)
PROC: 02L70CK Occlusion of Left Atrial Appendage with Extraluminal Device, Open Approach (ICD-10-PCS; 2021-11-16)
DX: I25.110 Atherosclerotic heart disease of native coronary artery with unstable angina pectoris (principal); J98.11 Atelectasis; Z20.822 Contact with and (suspected) exposure to COVID-19; I10 Essential (primary) hypertension; E78.00 Pure hypercholesterolemia, unspecified; E03.9 Hypothyroidism, unspecified; C50.919 Malignant neoplasm of unspecified site of unspecified female breast; E66.9 Obesity, unspecified; F41.9 Anxiety disorder, unspecified; F32.A Depression, unspecified; R50.82 Postprocedural fever; D64.89 Other specified anemias; Z79.899 Other long term (current) drug therapy; Z79.82 Long term (current) use of aspirin; Z90.13 Acquired absence of bilateral breasts and nipples; Z68.35 Body mass index [BMI] 35.0-35.9, adult; Z90.710 Acquired absence of both cervix and uterus; Z79.890 Hormone replacement therapy
CPT/HCPCS: 36415; 36416; 36430; 71045; 71275; 74174; 78452; 80048; 80053; 80061; 81001; 82550; 82805; 83690; 83880; 84484; 85025; 85379; 85610; 85730; 86850; 86900; 86901; 87811; 93005; 93010; 93017; 93458; 93798; 93880; 94002; 94760; 96372; 96374; 96375; 97139; 99152; A9500; C1751; C1760; C1769; C1894; G0378; J0153; J0360; J0690; J1100; J1642; J1644; J1650; J1815; J1885; J2001; J2250; J2270; J2405; J2440; J2704; J2720; J3010; J3370; J3475; J3480; J3490; J7050; J7120; P9045; Q9967; S0017; S0028; U0002

== ENCOUNTER 2022-08-05 08:49 | Outpatient (CLI) | payer OTHER, BC, MEDICAID | END 2022-08-05 08:50 | disposition home or self-care (01) | LOC: BICMAMMO 08:49 | PROVIDERS: ATTEND Internal Medicine Hematology & Oncology | DX: Z13.820 Encounter for screening for osteoporosis (principal); T38.6X5A Adverse effect of antigonadotrophins, antiestrogens, antiandrogens, not elsewhere classified, initial encounter; Z85.3 Personal history of malignant neoplasm of breast | CPT/HCPCS: 77080 ==

== ENCOUNTER 2022-11-30 06:16 | Day surgery (SDC) | payer OTHER, BC ==
[2022-11-26 14:24] VITALS: BMI 35.3
[~2022-11-30 06:16] MED LIST changes: +EPINEPHrine 0.3 MG in Ophthalmic Irrigation Solution 500 ML IRR SCH; -Iopamidol-370 76% 500 ML 1 ML ONE
[2022-11-30] MEDS ORDERED: PROPOFOL 20 ML ONE (06:30)
[2022-11-30] MEDS ORDERED: fentaNYL 50 mcg/mL 1 mL Vial ONE (06:30)
[2022-11-30] MEDS ORDERED: PHENYLephrine 2.5% Ophth Soln 15 ml Bottle ONE (06:52)
[2022-11-30] MEDS ORDERED: Cyclopentolate 1% Opth Drop 2 ML BOT ONE (06:52)
[2022-11-30] MEDS ORDERED: Midazolam HCl 2 mg/2 ml Vial ONE (07:02)
[2022-11-30] MEDS ORDERED: Lidocaine 1% PF 5 ML VIAL ONE (07:44)
[2022-11-30] MEDS ORDERED: Bupivacaine 0.75% 10 ML VIAL ONE (07:44)
[2022-11-30] MEDS ORDERED: CEFAZOLIN 1 GM VIAL ONE (07:44)
[2022-11-30] MEDS ORDERED: Indocyanine Green 25 MG/10 ML VIAL ONE (07:44)
[2022-11-30] MEDS ORDERED: Maxitrol 0.1% Opth Oint 3.5 GM TUBE ONE (07:44)
[2022-11-30] MEDS ORDERED: Lidocaine 4% PF 5 ML AMP ONE (07:44)
[2022-11-30] MEDS ORDERED: Triamcinolone 40 MG/ML VIAL ONE (07:44)
== END 2022-11-30 10:00 | disposition home or self-care (01) ==
LOC: SDC 06:16
PROVIDERS: ATTEND Ophthalmology Retina Specialist
PROC: 08T43ZZ Resection of Right Vitreous, Percutaneous Approach (ICD-10-PCS; principal; 2022-11-30)
PROC: 08NE3ZZ Release Right Retina, Percutaneous Approach (ICD-10-PCS; 2022-11-30)
DX: H35.371 Puckering of macula, right eye (principal)
CPT/HCPCS: J0171; J0690; J2250; J2704; J3010; J3301; J3490